=== PATIENT | female | born 1955 | race Caucasian/White ===

== ENCOUNTER 2023-12-30 18:58 | Inpatient (IN) | payer MEDICARE, MEDICAID, SELFPAY ==
[2023-12-30 20:38] VITALS: BMI 25.7
[2023-12-30 20:39] VITALS: BP 139/93; PULSE 82; RESP 17; TEMP 36.1; O2SAT 97
[2023-12-30] MEDS: clonazePAM 0.5 MG TABLET PO (22:12)
[2023-12-30] MEDS: OLANZapine 10 MG TABLET 20 MG PO (22:12)
[2023-12-30] MEDS: Melatonin 3 MG TABLET 6 MG PO (22:12)
[2023-12-30] MEDS: Sulfamethox/Trimeth 800/160 TABLET 1 TAB PO (22:13)
[2023-12-30] MEDS: Famotidine 20 MG TABLET PO (22:13)
[2023-12-30 22:14] VITALS: BP 139/93; PULSE 82
[2023-12-30] MEDS: carvediloL 25 MG TABLET PO (22:14)
[2023-12-30] MEDS: Acetaminophen 325 MG TABLET 650 MG PO (22:19)
--- NOTE | 2023-12-30 22:28 | PC.NURSE ---
Admission Note Odette Madison, 68 years old woman was presented to [facility] for delusion and hallucination triggered by UTI. She called 911 on her visiting nurse's advice. Patient lived by herself in an apartment with VNA services. Patient is independent of ADL care. Patient has a medical history of Anemia, atypical chest pain, Coronary artery diseases, chronic back pain, chronic kidney diseases, stage 4, Hyperlipidemia, Hypertension, history CVA, and Hypothyroidism. Shaneka arrived on S1 unit at 1915 on 12/30/23, on Section-12B, with an admitting diagnosis of Unspecified Bipolar and other related disorders. Patient is alert and oriented x 3 with little insight into his situation. Patient is anxious and labile but compliant with the admission process. Denied SI/HI/AVH/depression/anxiety, contracted for the safety, ambulates slowly and independently, high fall risk due to recent fall at home as reported by the patient, VSS, no visible skin issues noticed, meds rec completed based on ED list and verified by the patient /provider notified/med approved/MAR active/patient takes his medication whole with water. Patient wears glasses, wears upper dentures and only reported chewing because she doesn?t have lower dentures. Tested positive for? UTI on 12/30/23 in ED, Signed release paper, unit orientation completed,? patient is being observed on 5 minutes safety check as ordered. Patient is full code. Belongings inventoried/secured. Notice of Rights for Temporary Involuntary Hospitalization Form offered/explained/refused to sign/filed.?
[2023-12-31] MEDS: Cyclobenzaprine HCl 10 MG TABLET PO (00:17)
[2023-12-31 07:00] VITALS: BMI 25.9
[2023-12-31 08:00] VITALS: BP 132/82; PULSE 92; RESP 20; TEMP 37.2; O2SAT 97
--- NOTE | 2023-12-31 08:53 | HO.PSYADMNOT ---
HPI Date of Service: 12/31/23 Chief Complaint: unspecified bipolar and other related disorder Sources of Information: patient interviewed, chart reviewed and crisis/core team assessment reviewed Diagnostics Vital Signs (24Hr): Vital Signs - 24 hr 12/30/23 20:39 12/30/23 22:14 Temperature 97 F Pulse Rate 82 82 Respiratory Rate 17 Blood Pressure 139/93 H 139/93 H Pulse Oximetry 97 Oxygen Delivery Method Room Air BMI result Body Mass Index 25.7 Meds/Allergies Meds Home Medications ?Medication ?Instructions ?Recorded ?Confirmed ?Type amlodipine 10 mg tablet 10 mg PO DAILY 12/30/23 12/30/23 History aspirin 81 mg tablet 324 mg PO DAILY 12/30/23 12/30/23 History carvedilol 25 mg tablet 25 mg PO BID 12/30/23 12/30/23 History clonazepam 0.5 mg tablet 0.5 mg PO BID 12/30/23 12/30/23 History cyclobenzaprine 10 mg tablet 10 mg PO BID PRN Muscle Spasm 12/30/23 12/30/23 History docusate sodium 100 mg capsule 100 mg PO BID PRN Constipation 12/30/23 12/30/23 History famotidine 20 mg tablet 20 mg PO BEDTIME 12/30/23 12/30/23 History fluticasone propionate 50 2 spray intranasal BID 12/30/23 12/30/23 History mcg/actuation nasal spray,suspension guaifenesin 100 mg/5 mL oral liquid 200 mg PO Q4H PRN Cough 12/30/23 12/30/23 History lamotrigine 200 mg tablet 200 mg PO DAILY 12/30/23 12/30/23 History levothyroxine 100 mcg tablet 100 mcg PO DAILY 12/30/23 12/30/23 History meclizine 12.5 mg tablet 12.5 mg PO TID PRN Dizziness 12/30/23 12/30/23 History melatonin 3 mg tablet 6 mg PO BEDTIME 12/30/23 12/30/23 History nitroglycerin 0.4 mg sublingual 0.4 mg sublingual Q5M PRN Chest 12/30/23 12/30/23 History tablet Pain olanzapine 20 mg tablet 20 mg PO BEDTIME 12/30/23 12/30/23 History olanzapine 5 mg tablet 5 mg PO BID 12/30/23 12/30/23 History ondansetron 4 mg disintegrating 4 mg PO Q8H PRN Nausea And Vomiting 12/30/23 12/30/23 History tablet oxcarbazepine 150 mg tablet 450 mg PO QAM 12/30/23 12/30/23 History pantoprazole 20 mg tablet,delayed 20 mg PO DAILY 12/30/23 12/30/23 History release polyethylene glycol 3350 17 gram 17 g PO DAILY PRN Constipation 12/30/23 12/30/23 History oral powder packet rosuvastatin 20 mg tablet 20 mg PO BEDTIME 12/30/23 12/30/23 History sennosides 8.6 mg tablet (senna) 8.6 mg PO BID PRN Constipation 12/30/23 12/30/23 History simethicone 80 mg chewable tablet 80 mg PO DAILY PRN Dyspepsia 12/30/23 12/30/23 History sulfamethoxazole 800 1 tab PO BID 12/30/23 12/30/23 History mg-trimethoprim 160 mg tablet (Bactrim DS) tamsulosin 0.4 mg capsule 0.4 mg PO DAILY 12/30/23 12/30/23 History Allergies Allergies Allergy/AdvReac Type Severity Reaction Status Date / Time risperidone [From Risperdal] AdvReac Severe Hallucinati Verified 12/30/23 19:42 ons carbamazepine [From Tegretol] AdvReac Intermediate Rash Verified 12/30/23 19:40 chlorpromazine AdvReac Intermediate Hallucinati Verified 12/30/23 19:42 [From Thorazine] ons codeine AdvReac Intermediate Vomiting Verified 12/30/23 19:44 gluten AdvReac Intermediate Gastrointestinal Verified 12/30/23 19:46 Upset haloperidol [From Haldol] AdvReac Intermediate Hallucinati Verified 12/30/23 19:43 ons lithium AdvReac Intermediate Hallucinati Verified 12/30/23 19:45 ons trazodone AdvReac Intermediate Unknown Verified 12/30/23 19:41 Assessment & Plan Statement Statement: I have reviewed the history and physical and performed a pertinent examination on my patient. No changes have occurred unless specified. If the History and Physical was not performed prior to admission, the Hospitalist's service will be consulted for completing the admission physical. Time Spent With Patient Time: Total time managing care of this patient today ____ minutes.
[2023-12-31 09:28] LABS: Estimated Average Glucose 100 mg/dL; Hemoglobin A1C 94.6063 umol/L; Hemoglobin A1c % 5.1 % (<6.0); Total Hemoglobin (HGBA1C) 2925.1325 umol/L
[2023-12-31] MEDS: Meclizine HCl 12.5 MG TABLET PO (09:37)
[2023-12-31] MEDS: Sulfamethox/Trimeth 800/160 TABLET 1 TAB PO (09:38)
[2023-12-31] MEDS: Aspirin 81 MG TAB.CHEW 324 MG PO (09:38)
[2023-12-31 09:39] LABS: Alanine Aminotransferase 25 U/L (0-31); Albumin Level 4.5 g/dL (3.5-5.0); Alkaline Phosphatase 145 U/L (39-117); Anion Gap 15 (12-20); Aspartate Amino Transferase 26 U/L (5-31); Bilirubin Total 0.3 mg/dL (0.0-1.0); Blood Urea Nitrogen 43 mg/dL (9-16); Calcium 10.4 mg/dL (8.4-10.2); Carbon Dioxide 19 mmol/L (22-29); Chloride 113 mmol/L (96-108); Cholesterol 173 mg/dL (<200); Creatinine Clr Calc Pharmacy 13.4; Estimated Glomerular Filt Rate 15; Glucose Fasting 138 mg/dL (60-99); HDL Cholesterol 41 mg/dL (>40); LDL Cholesterol Calculated 86 mg/dL (<100); Potassium 4.3 mmol/L (3.3-5.1); Sodium 143 mmol/L (135-145); Total Protein 8.1 g/dL (6.5-8.0); Triglycerides 232 mg/dL (<150)
[2023-12-31] MEDS: Tamsulosin HCL 0.4 MG CAPSULE PO (09:40)
[2023-12-31] MEDS: Omeprazole 20 MG CAPSULE.DR PO (09:40)
[2023-12-31] MEDS: Levothyroxine Sodium 100 MCG TABLET PO (09:41)
[2023-12-31] MEDS: OXcarbazepine 150 MG TABLET 450 MG PO (09:41)
[2023-12-31] MEDS: OLANZapine 5 MG TABLET PO ×2 (09:42→21:05)
[2023-12-31] MEDS: Fluticasone Propionate Nasal 16 GM SPRAY 2 SPRAY NOSTRIL-B ×2 (09:42→21:08)
[2023-12-31] MEDS: lamoTRIgine 100 MG TABLET 200 MG PO (09:44)
[2023-12-31] MEDS: carvediloL 25 MG TABLET PO ×2 (09:45→21:04)
[2023-12-31] MEDS: amLODIPine Besylate 10 MG TABLET PO (09:45)
[2023-12-31] MEDS: clonazePAM 0.5 MG TABLET PO ×2 (09:46→21:04)
[2023-12-31 09:50] LABS: TSH reflex Free T4 1.44 uIU/mL (0.32-4.0)
--- NOTE | 2023-12-31 12:41 | P.CONHOSP_ITS ---
History of Present Illness Data of Consult Service Date: 12/31/23 Requesting physician: Ortega Kingsley Primary Care Provider: Dara Hines CNP [facility] Reason for consult: medical consult/ UTI Patient is a 68 year old female with a past medical history of bipolar, HTN, GERD, hypothyroidism status post thyroidectomy (?cancerous per pt), HLD, CKD 4, history of CVA (last 2003), [place] (2011 stent x3), TIA (), CAD, anemia, who was admitted to [facility] for delusions and hallucinations. She came from [facility] emergency department with delusions and hallucinations. She was also diagnosed with a UTI at that time and has been on Bactrim. She reports that she is still symptomatic with malodorous urine, urgency and incontinence. In addition she has chronic constipation is requesting MiraLax nightly as this works well for her and she has had some abdominal discomfort secondary to her constipation. She denies any headache, shortness of breath, chest pain, dizziness, diarrhea, nausea, vomiting or lower extremity edema. Review of Systems 2 Constitutional: Constitutional: Denies body ache(s), Denies chills, Denies fatigue, Denies fever(s) and Denies headache(s) Eyes: Eyes: Denies blurry vision and Denies change in vision ENT: Denies headache(s), Denies nasal congestion, Denies nasal discharge and Denies sore throat Cardiovascular: Cardiovascular: Denies chest pain, Denies rapid heart rate, Denies leg edema and Denies dyspnea Respiratory: Respiratory: Denies chest congestion, Denies cough and Denies dyspnea Gastrointestinal: Gastrointestinal: Reports constipation, Denies diarrhea, Denies nausea and Denies vomiting Genitourinary: Genitourinary: Denies dysuria, Reports urinary incontinence and Reports urinary urgency Musculoskeletal: Musculoskeletal: Denies arthralgias Integumentary/Breasts: Skin/Breast: Denies rash Neurologic: Denies confusion and Denies headache(s) Psychiatric: Psychiatric: Denies confusion Endocrine: Endocrine: Denies fatigue Hematologic/Lymphatic: Hematologic/Lymphatic: Denies easy bleeding and Denies easy bruising [facility] Medical History (Updated 12/31/23 @ 13:01 by Dolly Horn PA-C) TIA (transient ischemic attack) CVA (cerebral vascular accident) Myocardial infarction CAD (coronary artery disease) HLD (hyperlipidemia) Hypothyroid GERD (gastroesophageal reflux disease) HTN (hypertension) Functional capacity: independent ambulation Pertinent family history: reports mother had munchausen disease Social History Household Members: None Housing: Apartment Do you presently have visiting nurse or other home services: No Patient Tobacco Use Status: Never used Tobacco Use of substances other than those prescribed or required for medical reasons: Yes Last Used Substance Other:: 21 years ago Currently Displaying Signs/Symptoms of Drug Intoxication Withdrawal: No Have you been hit, kicked, punched, or otherwise hurt by someone within the past year? If so, by whom?: No Do you feel safe in your current relationship?: No Is there a partner from a previous relationship who is making you feel unsafe now?: No Are you made to feel afraid or neglected: No Advance Directives: No Advance Directives Information Provided: No Do you have thoughts of harming others: None Do you have a plan to hurt others: No Plan Recently lost weight without trying: Unsure Nutrition Risks: Difficulty chewing Patient : No : No Poor oral hygiene: No Meds Allergies Allergy/AdvReac Type Severity Reaction Status Date / Time risperidone [From Risperdal] AdvReac Severe Hallucinati Verified 12/30/23 19:42 ons carbamazepine [From Tegretol] AdvReac Intermediate Rash Verified 12/30/23 19:40 chlorpromazine AdvReac Intermediate Hallucinati Verified 12/30/23 19:42 [From Thorazine] ons codeine AdvReac Intermediate Vomiting Verified 12/30/23 19:44 gluten AdvReac Intermediate Gastrointestinal Verified 12/30/23 19:46 Upset haloperidol [From Haldol] AdvReac Intermediate Hallucinati Verified 12/30/23 19:43 ons lithium AdvReac Intermediate Hallucinati Verified 12/30/23 19:45 ons trazodone AdvReac Intermediate Unknown Verified 12/30/23 19:41 Active Medications: Current Medications Acetaminophen (Acetaminophen 325 Mg Tablet) 650 mg PO Q6H PRN PRN Reason: Headache/Pain Mild Scale (1-3) Last Admin: 12/30/23 22:19 Dose: 650 mg Al Hydroxide/Mg Hydroxide (Magnesium Hydrox/Alum Hydrox 30 Ml Oral.Susp) 30 ml PO Q6H PRN PRN Reason: Heartburn/Nausea Amlodipine Besylate (Amlodipine Besylate 10 Mg Tablet) 10 mg PO DAILY [facility]; Protocol Last Admin: 12/31/23 09:45 Dose: 10 mg Aspirin (Aspirin 81 Mg Tab.Chew) 324 mg PO DAILY [facility] Last Admin: 12/31/23 09:38 Dose: 324 mg Atorvastatin Calcium (Atorvastatin Calcium 80 Mg Tablet) 80 mg PO BEDTIME [facility] Carvedilol (Carvedilol 25 Mg Tablet) 25 mg PO BID [facility]; Protocol Last Admin: 12/31/23 09:45 Dose: 25 mg Clonazepam (Clonazepam 0.5 Mg Tablet) 0.5 mg PO BID [facility] Last Admin: 12/31/23 09:46 Dose: 0.5 mg Cyclobenzaprine HCl (Cyclobenzaprine Hcl 10 Mg Tablet) 10 mg PO BID PRN PRN Reason: Muscle Spasm Last Admin: 12/31/23 00:17 Dose: 10 mg Docusate Sodium (Docusate Sodium 100 Mg Capsule) 100 mg PO BID PRN PRN Reason: Constipation Famotidine (Famotidine 20 Mg Tablet) 20 mg PO BEDTIME [facility] Last Admin: 12/30/23 22:13 Dose: 20 mg Fluticasone Propionate (Fluticasone Propionate Nasal 16 Gm [place]) 2 spray NOSTRIL-B BID [facility] Last Admin: 12/31/23 09:42 Dose: 2 spray Guaifenesin (Guaifenesin 200 Mg/10 Ml 10 Ml Liquid) 10 ml PO Q4H PRN PRN Reason: Cough Lamotrigine (Lamotrigine 100 Mg Tablet) 200 mg PO DAILY [facility] Last Admin: 12/31/23 09:44 Dose: 200 mg Levothyroxine Sodium (Levothyroxine Sodium 100 Mcg Tablet) 100 mcg PO DAILY [facility] Last Admin: 12/31/23 09:41 Dose: 100 mcg Magnesium Hydroxide (Milk Of Magnesia 30 Ml Oral.Susp) 30 ml PO DAILY PRN PRN Reason: Constipation Meclizine HCl (Meclizine Hcl 12.5 Mg Tablet) 12.5 mg PO TID PRN PRN Reason: Dizziness Last Admin: 12/31/23 09:37 Dose: 12.5 mg Melatonin (Melatonin 3 Mg Tablet) 6 mg PO BEDTIME [facility] Last Admin: 12/30/23 22:12 Dose: 6 mg Nicotine (Nicotine 21 Mg Patch.Td24) 21 mg TRANSDERMA DAILY PRN PRN Reason: smoking cessation Nitroglycerin (Nitroglycerin 0.4 Mg Tab.Subl) 0.4 mg SUBLINGUAL Q5MX3 PRN PRN Reason: Chest Pain Olanzapine (Olanzapine 2.5 Mg Tablet) 2.5 mg PO TID PRN PRN Reason: agitation Olanzapine (Olanzapine 5 Mg Tablet) 5 mg PO BID [facility] Last Admin: 12/31/23 09:42 Dose: 5 mg Olanzapine (Olanzapine 10 Mg Tablet) 20 mg PO BEDTIME [facility] Last Admin: 12/30/23 22:12 Dose: 20 mg Omeprazole (Omeprazole 20 Mg Capsule.Dr) 20 mg PO DAILY [facility] Last Admin: 12/31/23 09:40 Dose: 20 mg Ondansetron HCl (Ondansetron Odt 4 Mg Tab.Rapdis) 4 mg TRANSLINGU Q8H PRN PRN Reason: Nausea And Vomiting Oxcarbazepine (Oxcarbazepine 150 Mg Tablet) 450 mg PO DAILY [facility] Last Admin: 12/31/23 09:41 Dose: 450 mg Polyethylene Glycol (Polyethylene Glycol 3350 17 Gm Powd.Pack) 17 gm PO DAILY PRN PRN Reason: Constipation Senna (Sennosides 8.6 Mg Tablet) 8.6 mg PO BID PRN PRN Reason: Constipation Simethicone (Simethicone 80 Mg Tab.Chew) 80 mg PO DAILY PRN PRN Reason: Dyspepsia Tamsulosin HCl (Tamsulosin Hcl 0.4 Mg Capsule) 0.4 mg PO DAILY [facility] Last Admin: 12/31/23 09:40 Dose: 0.4 mg Trimethoprim/Sulfamethoxazole (Sulfamethox/Trimeth 800/160 Tablet) 1 tab PO BID [facility] Last Admin: 12/31/23 09:38 Dose: 1 tab Home Medications ?Medication ?Instructions ?Recorded ?Confirmed ?Last Taken ?Type amlodipine 10 mg tablet 10 mg PO DAILY 12/30/23 12/30/23 Unknown History aspirin 81 mg tablet 324 mg PO DAILY 12/30/23 12/30/23 Unknown History carvedilol 25 mg tablet 25 mg PO BID 12/30/23 12/30/23 Unknown History clonazepam 0.5 mg tablet 0.5 mg PO BID 12/30/23 12/30/23 Unknown History cyclobenzaprine 10 mg tablet 10 mg PO BID PRN Muscle Spasm 12/30/23 12/30/23 Unknown History docusate sodium 100 mg capsule 100 mg PO BID PRN Constipation 12/30/23 12/30/23 Unknown History famotidine 20 mg tablet 20 mg PO BEDTIME 12/30/23 12/30/23 Unknown History fluticasone propionate 50 2 spray intranasal BID 12/30/23 12/30/23 Unknown History mcg/actuation nasal spray,suspension guaifenesin 100 mg/5 mL oral liquid 200 mg PO Q4H PRN Cough 12/30/23 12/30/23 Unknown History lamotrigine 200 mg tablet 200 mg PO DAILY 12/30/23 12/30/23 Unknown History levothyroxine 100 mcg tablet 100 mcg PO DAILY 12/30/23 12/30/23 Unknown History meclizine 12.5 mg tablet 12.5 mg PO TID PRN Dizziness 12/30/23 12/30/23 Unknown History melatonin 3 mg tablet 6 mg PO BEDTIME 12/30/23 12/30/23 Unknown History nitroglycerin 0.4 mg sublingual 0.4 mg sublingual Q5M PRN Chest 12/30/23 12/30/23 Unknown History tablet Pain olanzapine 20 mg tablet 20 mg PO BEDTIME 12/30/23 12/30/23 Unknown History olanzapine 5 mg tablet 5 mg PO BID 12/30/23 12/30/23 Unknown History ondansetron 4 mg disintegrating 4 mg PO Q8H PRN Nausea And Vomiting 12/30/23 12/30/23 Unknown History tablet oxcarbazepine 150 mg tablet 450 mg PO QAM 12/30/23 12/30/23 Unknown History pantoprazole 20 mg tablet,delayed 20 mg PO DAILY 12/30/23 12/30/23 Unknown History release polyethylene glycol 3350 17 gram 17 g PO DAILY PRN Constipation 12/30/23 12/30/23 Unknown History oral powder packet rosuvastatin 20 mg tablet 20 mg PO BEDTIME 12/30/23 12/30/23 Unknown History sennosides 8.6 mg tablet (senna) 8.6 mg PO BID PRN Constipation 12/30/23 12/30/23 Unknown History simethicone 80 mg chewable tablet 80 mg PO DAILY PRN Dyspepsia 12/30/23 12/30/23 Unknown History sulfamethoxazole 800 1 tab PO BID 12/30/23 12/30/23 12/30/23 History mg-trimethoprim 160 mg tablet (Bactrim DS) tamsulosin 0.4 mg capsule 0.4 mg PO DAILY 12/30/23 12/30/23 Unknown History Physical Exam 2 Vital Signs and Narrative: Vital Signs: Last Vital Signs Temp 98.9 F 12/31/23 08:00 Pulse 92 12/31/23 08:00 Resp 20 12/31/23 08:00 BP 132/82 12/31/23 08:00 Pulse Ox 97 12/31/23 08:00 O2 Del Method Room Air 12/31/23 08:00 BMI result Body Mass Index 25.7 General: AOx3, no acute distress Resp: CTA bilaterally CVS: S1, S2, RRR GI: +BS, NT, mild distention Skin: Warm, dry Neuro: Cranial nerves II-XII grossly intact bilaterally. Motor grossly intact bilaterally Extremities: No edema Psych: Appropriate affect Const: General: No confusion Orientation/consciousness: No confusion Neuro: General: No confusion Results Labs 12/31/23 08:58 Labs: Laboratory Results - last 24 hr 12/31/23 08:58 Anion Gap 15 Estim Creat Clear Calc 13.4 Estimated GFR 15 Fasting Glucose 138 H Estimat Average Glucose 100 Hemoglobin A1c % 5.1 Calcium 10.4 H Total Bilirubin 0.3 AST 26 ALT 25 Alkaline Phosphatase 145 H Total Protein 8.1 H Albumin 4.5 Triglycerides 232 H Cholesterol 173 LDL Cholesterol, Calc 86 HDL Cholesterol 41 TSH 1.44 Assessment and Plan (1) Medical clearance for psychiatric admission: Status: Acute (2) UTI (urinary tract infection): Status: Acute (3) CKD (chronic kidney disease) stage 4, GFR 15-29 ml/min: Status: Acute Plan Patient is a 68 year old female with a past medical history of bipolar, HTN, GERD, hypothyroidism status post thyroidectomy (?cancerous per pt), HLD, CKD 4, history of CVA (last 2003), [place] (2011 stent x3), TIA (), CAD, anemia, and chronic constipation, who was [facility] for [facility]usions and hallucinations. Active UTI, on Bactrim. mood disorder - plan per psych UTI - Bactrim not recommended with CKD4, will switch to ceftin 250mg BID x7 days - working on getting culture results from [facility] to ensure coverage - encourge PO fluids - continue tamsulosin CATHY on CKD - no significant change in creatinine, baseline about 2.6, currently 3.03 - likely related to Bactrim, switching abx - encourage PO fluids - consider IVF if creatinine continues to worsen, recheck in 48 hours HTN - continue amlodipine and carvedilol GERD - continue famotidine and pantoprazole Hypothyroid - continue levothyroxine - TSH normal HLD - continue rosuvastatin CAD - continue aspirin Chronic constipation - add miralax QHS per pt request Thank you for allowing me to participate in the pt's care. Will check on urine cx results to decide if ceftin needs to be switched. If unable to get records will repeact UA/cx here. Recheck BMP in 48 hours, if increasing, consider IVF. Please contact the medical team if any questions or concerns.
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
[2023-12-31 20:00] VITALS: BP 135/82; PULSE 88; RESP 17; TEMP 36.7; O2SAT 97
[2023-12-31] MEDS: Atorvastatin Calcium 80 MG TABLET PO (21:03)
[2023-12-31] MEDS: OLANZapine 10 MG TABLET 20 MG PO (21:04)
[2023-12-31] MEDS: Famotidine 20 MG TABLET PO (21:04)
[2023-12-31] MEDS: cefuroxime axetiL 250 MG TABLET PO (21:04)
[2023-12-31] MEDS: Melatonin 3 MG TABLET 6 MG PO (21:05)
[2023-12-31] MEDS: Acetaminophen 325 MG TABLET 650 MG PO (21:08)
[2024-01-01] MEDS: OLANZapine 2.5 MG TABLET PO ×2 (03:29→14:47)
[2024-01-01 08:00] VITALS: BP 126/69; PULSE 73; RESP 16; TEMP 36.4; O2SAT 99
[2024-01-01] MEDS: Tamsulosin HCL 0.4 MG CAPSULE PO (08:37)
[2024-01-01] MEDS: cefuroxime axetiL 250 MG TABLET PO ×2 (08:37→20:13)
[2024-01-01] MEDS: OLANZapine 5 MG TABLET PO ×2 (08:38→20:13)
[2024-01-01] MEDS: Aspirin 81 MG TAB.CHEW 324 MG PO (08:39)
[2024-01-01 08:42] VITALS: BP 126/69; PULSE 73
[2024-01-01] MEDS: carvediloL 25 MG TABLET PO ×2 (08:42→20:13)
[2024-01-01] MEDS: Levothyroxine Sodium 100 MCG TABLET PO (08:44)
[2024-01-01] MEDS: lamoTRIgine 100 MG TABLET 200 MG PO (08:44)
[2024-01-01] MEDS: OXcarbazepine 150 MG TABLET 450 MG PO (08:45)
[2024-01-01] MEDS: Omeprazole 20 MG CAPSULE.DR PO (08:48)
[2024-01-01] MEDS: clonazePAM 0.5 MG TABLET PO ×3 (08:48→20:13)
[2024-01-01 08:49] VITALS: BP 126/69
[2024-01-01] MEDS: amLODIPine Besylate 10 MG TABLET PO (08:49)
[2024-01-01] MEDS: Fluticasone Propionate Nasal 16 GM SPRAY 2 SPRAY NOSTRIL-B ×2 (08:50→20:22)
[2024-01-01] MEDS: Acetaminophen 325 MG TABLET 650 MG PO ×2 (11:09→17:09)
[2024-01-01] MEDS: Cyclobenzaprine HCl 10 MG TABLET PO (11:10)
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
[2024-01-01 20:00] VITALS: BP 149/88; PULSE 83; RESP 18; TEMP 36.3; O2SAT 97
[2024-01-01] MEDS: OLANZapine 10 MG TABLET 20 MG PO (20:12)
[2024-01-01] MEDS: Atorvastatin Calcium 80 MG TABLET PO (20:13)
[2024-01-01] MEDS: Famotidine 20 MG TABLET PO (20:13)
[2024-01-01] MEDS: polyethylene glycoL 3350 17 GM POWD.PACK PO (20:15)
[2024-01-02 07:51] LABS: Anion Gap 18 (12-20); Blood Urea Nitrogen 56 mg/dL (9-16); Calcium 9.6 mg/dL (8.4-10.2); Carbon Dioxide 17 mmol/L (22-29); Chloride 112 mmol/L (96-108); Creatinine Clr Calc Pharmacy 12.5; Estimated Glomerular Filt Rate 14; Glucose Random 96 mg/dL (60-115); Potassium 4.8 mmol/L (3.3-5.1); Sodium 142 mmol/L (135-145)
[2024-01-02 07:55] VITALS: BP 149/86; PULSE 81; RESP 20; TEMP 36.7; O2SAT 99
[2024-01-02] MEDS: OLANZapine 5 MG TABLET PO ×2 (08:06→21:04)
[2024-01-02] MEDS: lamoTRIgine 100 MG TABLET 200 MG PO (08:06)
[2024-01-02] MEDS: amLODIPine Besylate 10 MG TABLET PO (08:06)
[2024-01-02] MEDS: Levothyroxine Sodium 100 MCG TABLET PO (08:06)
[2024-01-02] MEDS: Aspirin 81 MG TAB.CHEW 324 MG PO (08:06)
--- NOTE | 2024-01-02 08:06 | HO.PSYCHPN ---
Subjective Subjective Date of Service: 01/02/24 Reason For Visit: unspecified bipolar and other related disorder Diagnostics Vital Signs (24Hr): Vital Signs - 24 hr 01/01/24 08:42 01/01/24 08:49 01/01/24 20:00 Temperature 97.4 F Pulse Rate 73 83 Respiratory Rate 18 Blood Pressure 126/69 126/69 149/88 H Pulse Oximetry 97 Oxygen Delivery Method Room Air BMI result Body Mass Index 25.9 Labs 01/02/24 07:18 Labs: Laboratory Results - last 48 hr 12/31/23 01/02/24 08:58 07:18 Sodium 143 142 Potassium 4.3 4.8 Chloride 113 H 112 H Carbon Dioxide 19 L 17 L Anion Gap 15 18 BUN 43 H 56 H Creatinine 3.03 H 3.28 H Estim Creat Clear Calc 13.4 12.5 Estimated GFR 15 14 Random Glucose 96 Fasting Glucose 138 H Estimat Average Glucose 100 Hemoglobin A1c % 5.1 Calcium 10.4 H 9.6 D Total Bilirubin 0.3 AST 26 ALT 25 Alkaline Phosphatase 145 H Total Protein 8.1 H Albumin 4.5 Triglycerides 232 H Cholesterol 173 LDL Cholesterol, Calc 86 HDL Cholesterol 41 TSH 1.44 Medications Medications Current Medications Acetaminophen (Acetaminophen 325 Mg Tablet) 650 mg PO Q6H PRN PRN Reason: Headache/Pain Mild Scale (1-3) Last Admin: 01/01/24 17:09 Dose: 650 mg Al Hydroxide/Mg Hydroxide (Magnesium Hydrox/Alum Hydrox 30 Ml Oral.Susp) 30 ml PO Q6H PRN PRN Reason: Heartburn/Nausea Amlodipine Besylate (Amlodipine Besylate 10 Mg Tablet) 10 mg PO DAILY [facility]; Protocol Last Admin: 01/01/24 08:49 Dose: 10 mg Aspirin (Aspirin 81 Mg Tab.Chew) 324 mg PO DAILY [facility] Last Admin: 01/01/24 08:39 Dose: 324 mg Atorvastatin Calcium (Atorvastatin Calcium 80 Mg Tablet) 80 mg PO BEDTIME [facility] Last Admin: 01/01/24 20:13 Dose: 80 mg Carvedilol (Carvedilol 25 Mg Tablet) 25 mg PO BID [facility]; Protocol Last Admin: 01/01/24 20:13 Dose: 25 mg Cefuroxime Axetil (Cefuroxime Axetil 250 Mg Tablet) 250 mg PO BID [facility] Stop: 01/07/24 09:01 Last Admin: 01/01/24 20:13 Dose: 250 mg Clonazepam (Clonazepam 0.5 Mg Tablet) 0.5 mg PO BID [facility] Last Admin: 01/01/24 20:13 Dose: 0.5 mg Clonazepam (Clonazepam 0.5 Mg Tablet) 0.5 mg PO DAILY PRN PRN Reason: for anxiety; may have anytime Cyclobenzaprine HCl (Cyclobenzaprine Hcl 10 Mg Tablet) 10 mg PO BID PRN PRN Reason: Muscle Spasm Last Admin: 01/01/24 11:10 Dose: 10 mg Docusate Sodium (Docusate Sodium 100 Mg Capsule) 100 mg PO BID PRN PRN Reason: Constipation Famotidine (Famotidine 20 Mg Tablet) 20 mg PO BEDTIME [facility] Last Admin: 01/01/24 20:13 Dose: 20 mg Fluticasone Propionate (Fluticasone Propionate Nasal 16 Gm [place]) 2 spray NOSTRIL-B BID [facility] Last Admin: 01/01/24 20:22 Dose: 2 spray Guaifenesin (Guaifenesin 200 Mg/10 Ml 10 Ml Liquid) 10 ml PO Q4H PRN PRN Reason: Cough Lamotrigine (Lamotrigine 100 Mg Tablet) 200 mg PO DAILY [facility] Last Admin: 01/01/24 08:44 Dose: 200 mg Levothyroxine Sodium (Levothyroxine Sodium 100 Mcg Tablet) 100 mcg PO DAILY [facility] Last Admin: 01/01/24 08:44 Dose: 100 mcg Magnesium Hydroxide (Milk Of Magnesia 30 Ml Oral.Susp) 30 ml PO DAILY PRN PRN Reason: Constipation Meclizine HCl (Meclizine Hcl 12.5 Mg Tablet) 12.5 mg PO TID PRN PRN Reason: Dizziness Last Admin: 12/31/23 09:37 Dose: 12.5 mg Melatonin (Melatonin 3 Mg Tablet) 6 mg PO BEDTIME [facility] Last Admin: 01/01/24 20:26 Dose: Not Given Nicotine (Nicotine 21 Mg Patch.Td24) 21 mg TRANSDERMA DAILY PRN PRN Reason: smoking cessation Nitroglycerin (Nitroglycerin 0.4 Mg Tab.Subl) 0.4 mg SUBLINGUAL Q5MX3 PRN PRN Reason: Chest Pain Olanzapine (Olanzapine 2.5 Mg Tablet) 2.5 mg PO TID PRN PRN Reason: agitation Last Admin: 01/01/24 14:47 Dose: 2.5 mg Olanzapine (Olanzapine 5 Mg Tablet) 5 mg PO BID [facility] Last Admin: 01/01/24 20:13 Dose: 5 mg Olanzapine (Olanzapine 10 Mg Tablet) 20 mg PO BEDTIME [facility] Last Admin: 01/01/24 20:12 Dose: 20 mg Omeprazole (Omeprazole 20 Mg Capsule.Dr) 20 mg PO DAILY [facility] Last Admin: 01/01/24 08:48 Dose: 20 mg Ondansetron HCl (Ondansetron Odt 4 Mg Tab.Rapdis) 4 mg TRANSLINGU Q8H PRN PRN Reason: Nausea And Vomiting Oxcarbazepine (Oxcarbazepine 150 Mg Tablet) 450 mg PO DAILY [facility] Last Admin: 01/01/24 08:45 Dose: 450 mg Polyethylene Glycol (Polyethylene Glycol 3350 17 Gm Powd.Pack) 17 gm PO DAILY PRN PRN Reason: Constipation Polyethylene Glycol (Polyethylene Glycol 3350 17 Gm Powd.Pack) 17 gm PO DAILY [facility] Last Admin: 01/01/24 20:15 Dose: 17 gm Senna (Sennosides 8.6 Mg Tablet) 8.6 mg PO BID PRN PRN Reason: Constipation Simethicone (Simethicone 80 Mg Tab.Chew) 80 mg PO DAILY PRN PRN Reason: Dyspepsia Tamsulosin HCl (Tamsulosin Hcl 0.4 Mg Capsule) 0.4 mg PO DAILY [facility] Last Admin: 01/01/24 08:37 Dose: 0.4 mg Allergies Allergies Allergy/AdvReac Type Severity Reaction Status Date / Time risperidone [From Risperdal] AdvReac Severe Hallucinati Verified 12/30/23 19:42 ons carbamazepine [From Tegretol] AdvReac Intermediate Rash Verified 12/30/23 19:40 chlorpromazine AdvReac Intermediate Hallucinati Verified 12/30/23 19:42 [From Thorazine] ons codeine AdvReac Intermediate Vomiting Verified 12/30/23 19:44 gluten AdvReac Intermediate Gastrointestinal Verified 12/30/23 19:46 Upset haloperidol [From Haldol] AdvReac Intermediate Hallucinati Verified 12/30/23 19:43 ons lithium AdvReac Intermediate Hallucinati Verified 12/30/23 19:45 ons trazodone AdvReac Intermediate Unknown Verified 12/30/23 19:41 Assessment & Plan Assessment & Plan (1) Medical clearance for psychiatric admission: Status: Acute Code(s): Z00.8 - Encounter for other general examination (2) UTI (urinary tract infection): Status: Acute Code(s): N39.0 - Urinary tract infection, site not specified (3) CKD (chronic kidney disease) stage 4, GFR 15-29 ml/min: Status: Acute Code(s): N18.4 - Chronic kidney disease, stage 4 (severe) Plan Patient is a 68 year old female with a past medical history of bipolar, HTN, GERD, hypothyroidism status post thyroidectomy (?cancerous per pt), HLD, CKD 4, history of CVA (last 2003), IA (2011 stent x3), TIA (), CAD, anemia, and chronic constipation, who was [facility] for delusions and hallucinations. Active UTI, on Bactrim. mood disorder - plan per psych UTI - Bactrim not recommended with CKD4, will switch to ceftin 250mg BID x7 days - working on getting culture results from [facility] to ensure coverage - encourge PO fluids - continue tamsulosin CATHY on CKD - no significant change in creatinine, baseline about 2.6, currently 3.03 - likely related to Bactrim, switching abx - encourage PO fluids - consider IVF if creatinine continues to worsen, recheck in 48 hours HTN - continue amlodipine and carvedilol GERD - continue famotidine and pantoprazole Hypothyroid - continue levothyroxine - TSH normal HLD - continue rosuvastatin CAD - continue aspirin Chronic constipation - add miralax QHS per pt request Thank you for allowing me to participate in the pt's care. Will check on urine cx results to decide if ceftin needs to be switched. If unable to get records will repeact UA/cx here. Recheck BMP in 48 hours, if increasing, consider IVF. Please contact the medical team if any questions or concerns. Time Spent With Patient Time: Total time managing care of this patient today ____ minutes.
[2024-01-02] MEDS: Tamsulosin HCL 0.4 MG CAPSULE PO (08:07)
[2024-01-02] MEDS: OXcarbazepine 150 MG TABLET 450 MG PO (08:07)
[2024-01-02] MEDS: clonazePAM 0.5 MG TABLET PO ×3 (08:07→21:04)
[2024-01-02] MEDS: Omeprazole 20 MG CAPSULE.DR PO (08:07)
[2024-01-02] MEDS: polyethylene glycoL 3350 17 GM POWD.PACK PO (08:07)
[2024-01-02] MEDS: cefuroxime axetiL 250 MG TABLET PO ×2 (08:07→21:04)
[2024-01-02] MEDS: carvediloL 25 MG TABLET PO ×2 (08:07→21:04)
[2024-01-02] MEDS: Fluticasone Propionate Nasal 16 GM SPRAY 2 SPRAY NOSTRIL-B ×2 (08:07→21:03)
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
--- NOTE | 2024-01-02 14:03 | PM.EVENT ---
Event Note Date of Service: 01/02/24 Event Note: Patient is a 68-year-old female admitted to [facility] with follow-up for worsening creatinine function. Patient has a history of CKD 4 with baseline creatinine around 2.6. Patient was started on Bactrim for UTI at previous facility and found here to have worsening creatinine function of 3.03 on 12/30 moment and 3.28 today. Patient's antibiotics have been switched to cefuroxime. We will give patient 1 L IVF for CATHY on CKD. Will repeat labs in the morning. Also alerted by nursing that pt's bladder scan shows 300ml. Pt states has not yet urinated but feels like she will soon. Will place orders for straight cath for scan showing >350ml. Time Spent With Patient Time: Total time managing care of this patient today ____ minutes.
[2024-01-02] MEDS: Acetaminophen 325 MG TABLET 650 MG PO (17:27)
[2024-01-02] MEDS: Lactated Ringers 1,000 ML 999 ML IV (17:32)
[2024-01-02] MEDS: OLANZapine 2.5 MG TABLET PO (17:50)
[2024-01-02 18:12] LABS: Appearance Urine Clear; Color Urine Yellow; Glucose Urine UA Negative (Negative); Leukocyte Esterase Urine Negative (Negative); Nitrite Urine Negative (Negative); PH 5.5 (5.0-9.0); Specific Gravity - Urine <= 1.005 (1.005-1.025); UMIC TRIGGER UACC YES; Urine Blood Negative (Negative); Urine Ketones Negative (Negative); Urine Protein 30 (1+) mg/dL (Neg-Trace)
[2024-01-02 18:17] LABS: Bacteria Urine None Seen (None Seen); Hyaline Casts Urine 0-2 /LPF (0-2); RBC Urine 0-2 /HPF (0-2); Squamous Epithelial Cell Urine 0-2 /HPF (0-2); WBC Urine 0-5 /HPF (0-5)
[2024-01-02 20:00] VITALS: BP 116/80; PULSE 73; RESP 18; TEMP 36.3; O2SAT 98
[2024-01-02] MEDS: Atorvastatin Calcium 80 MG TABLET PO (21:04)
[2024-01-02] MEDS: Melatonin 3 MG TABLET 6 MG PO (21:04)
[2024-01-02] MEDS: Famotidine 20 MG TABLET PO (21:04)
[2024-01-02] MEDS: OLANZapine 10 MG TABLET 20 MG PO (21:04)
--- NOTE | 2024-01-02 22:43 | PC.NURSE ---
Hospitalist called for IV flush order but he ordered to have IV line discontinued. IV removed/cleansed/covered with dry dressing secured with tap, patient tolerated well, will continue to monitor.
[2024-01-03] MEDS: Acetaminophen 325 MG TABLET 650 MG PO ×3 (03:29→17:46)
[2024-01-03] MEDS: Levothyroxine Sodium 100 MCG TABLET PO (06:17)
[2024-01-03 07:41] LABS: Anion Gap 17 (12-20); Blood Urea Nitrogen 53 mg/dL (9-16); Calcium 9.2 mg/dL (8.4-10.2); Carbon Dioxide 19 mmol/L (22-29); Chloride 112 mmol/L (96-108); Creatinine Clr Calc Pharmacy 13.9; Estimated Glomerular Filt Rate 16; Glucose Random 100 mg/dL (60-115); Potassium 4.6 mmol/L (3.3-5.1); Sodium 143 mmol/L (135-145)
[2024-01-03 07:55] VITALS: BP 119/72; PULSE 74; RESP 18; TEMP 36.4; O2SAT 99
[2024-01-03] MEDS: cefuroxime axetiL 250 MG TABLET PO ×2 (08:03→20:58)
[2024-01-03] MEDS: carvediloL 25 MG TABLET PO ×2 (08:03→21:00)
[2024-01-03] MEDS: lamoTRIgine 100 MG TABLET 200 MG PO (08:04)
[2024-01-03] MEDS: OXcarbazepine 150 MG TABLET 450 MG PO (08:04)
[2024-01-03] MEDS: Aspirin 81 MG TAB.CHEW 324 MG PO (08:04)
[2024-01-03] MEDS: Tamsulosin HCL 0.4 MG CAPSULE PO (08:04)
[2024-01-03] MEDS: OLANZapine 5 MG TABLET PO ×2 (08:04→20:59)
[2024-01-03] MEDS: amLODIPine Besylate 10 MG TABLET PO (08:05)
[2024-01-03] MEDS: clonazePAM 0.5 MG TABLET PO ×3 (08:05→20:58)
[2024-01-03] MEDS: Fluticasone Propionate Nasal 16 GM SPRAY 2 SPRAY NOSTRIL-B ×2 (08:05→21:01)
[2024-01-03] MEDS: Omeprazole 20 MG CAPSULE.DR PO (08:05)
[2024-01-03] MEDS: polyethylene glycoL 3350 17 GM POWD.PACK PO (08:11)
[2024-01-03] MEDS: OLANZapine 2.5 MG TABLET PO (10:35)
[2024-01-03] MEDS: Meclizine HCl 12.5 MG TABLET PO (12:30)
[2024-01-03] MEDS: Cyclobenzaprine HCl 10 MG TABLET PO (17:45)
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
[2024-01-03 20:00] VITALS: BP 137/74; PULSE 78; RESP 16; TEMP 36.2; O2SAT 100
[2024-01-03] MEDS: OLANZapine 10 MG TABLET 20 MG PO (20:58)
[2024-01-03] MEDS: Famotidine 20 MG TABLET PO (20:59)
[2024-01-03] MEDS: Atorvastatin Calcium 80 MG TABLET PO (20:59)
[2024-01-03 21:00] VITALS: BP 137/74; PULSE 78
[2024-01-03] MEDS: Melatonin 3 MG TABLET 6 MG PO (21:00)
[2024-01-04] MEDS: Cyclobenzaprine HCl 10 MG TABLET PO (03:10)
[2024-01-04] MEDS: Acetaminophen 325 MG TABLET 650 MG PO ×2 (03:11→13:43)
[2024-01-04] MEDS: Levothyroxine Sodium 100 MCG TABLET PO (06:22)
[2024-01-04 08:45] VITALS: BP 132/79; PULSE 97; RESP 18; TEMP 36; O2SAT 98
[2024-01-04] MEDS: Aspirin 81 MG TAB.CHEW 324 MG PO (09:27)
[2024-01-04] MEDS: OXcarbazepine 150 MG TABLET 450 MG PO (09:27)
[2024-01-04] MEDS: amLODIPine Besylate 10 MG TABLET PO (09:29)
[2024-01-04] MEDS: clonazePAM 0.5 MG TABLET PO ×3 (09:30→21:28)
[2024-01-04] MEDS: Omeprazole 20 MG CAPSULE.DR PO (09:30)
[2024-01-04] MEDS: Tamsulosin HCL 0.4 MG CAPSULE PO (09:31)
[2024-01-04] MEDS: cefuroxime axetiL 250 MG TABLET PO ×2 (09:32→21:32)
[2024-01-04] MEDS: carvediloL 25 MG TABLET PO ×2 (09:33→21:28)
[2024-01-04] MEDS: lamoTRIgine 100 MG TABLET 200 MG PO (09:34)
[2024-01-04] MEDS: Fluticasone Propionate Nasal 16 GM SPRAY 2 SPRAY NOSTRIL-B ×2 (09:35→21:33)
[2024-01-04] MEDS: OLANZapine 5 MG TABLET PO ×2 (09:50→21:29)
[2024-01-04] MEDS: OLANZapine 2.5 MG TABLET PO (16:21)
[2024-01-04 20:00] VITALS: BP 159/95; PULSE 85; RESP 18; TEMP 36.6; O2SAT 99
[2024-01-04 21:28] VITALS: BP 159/95; PULSE 85
[2024-01-04] MEDS: OLANZapine 10 MG TABLET 20 MG PO (21:29)
[2024-01-04] MEDS: Melatonin 3 MG TABLET 6 MG PO (21:30)
[2024-01-04] MEDS: Famotidine 20 MG TABLET PO (21:31)
[2024-01-04] MEDS: Atorvastatin Calcium 80 MG TABLET PO (21:32)
[2024-01-05] MEDS: Cyclobenzaprine HCl 10 MG TABLET PO (01:36)
[2024-01-05] MEDS: Acetaminophen 325 MG TABLET 650 MG PO (01:36)
[2024-01-05] MEDS: Levothyroxine Sodium 100 MCG TABLET PO (05:45)
[2024-01-05 08:38] VITALS: BP 138/85; PULSE 85; RESP 16; TEMP 36.9; O2SAT 97
[2024-01-05] MEDS: Tamsulosin HCL 0.4 MG CAPSULE PO (08:39)
[2024-01-05] MEDS: OXcarbazepine 150 MG TABLET 450 MG PO (08:39)
[2024-01-05] MEDS: cefuroxime axetiL 250 MG TABLET PO ×2 (08:39→21:05)
[2024-01-05] MEDS: Fluticasone Propionate Nasal 16 GM SPRAY 2 SPRAY NOSTRIL-B ×2 (08:39→21:02)
[2024-01-05] MEDS: Omeprazole 20 MG CAPSULE.DR PO (08:39)
[2024-01-05] MEDS: Aspirin 81 MG TAB.CHEW 324 MG PO (08:40)
[2024-01-05] MEDS: clonazePAM 0.5 MG TABLET PO ×3 (08:41→21:04)
[2024-01-05] MEDS: lamoTRIgine 100 MG TABLET 200 MG PO (08:41)
[2024-01-05] MEDS: carvediloL 25 MG TABLET PO ×2 (08:41→21:07)
[2024-01-05] MEDS: amLODIPine Besylate 10 MG TABLET PO (08:41)
[2024-01-05] MEDS: OLANZapine 5 MG TABLET PO ×2 (08:41→21:07)
[2024-01-05] MEDS: Meclizine HCl 12.5 MG TABLET PO (08:55)
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
[2024-01-05] MEDS: OLANZapine 2.5 MG TABLET PO ×2 (14:58→17:29)
[2024-01-05 20:00] VITALS: BP 147/77; PULSE 82; RESP 18; TEMP 36.4; O2SAT 98
[2024-01-05] MEDS: OLANZapine 10 MG TABLET 20 MG PO (21:03)
[2024-01-05 21:07] VITALS: BP 147/77; PULSE 82
[2024-01-05] MEDS: Famotidine 20 MG TABLET PO (21:09)
[2024-01-05] MEDS: Atorvastatin Calcium 80 MG TABLET PO (21:11)
[2024-01-05] MEDS: Melatonin 3 MG TABLET 6 MG PO (21:12)
[2024-01-06] MEDS: Levothyroxine Sodium 100 MCG TABLET PO (06:49)
[2024-01-06 08:00] VITALS: BP 147/86; PULSE 56; RESP 16; TEMP 36.2; O2SAT 98
[2024-01-06] MEDS: Aspirin 81 MG TAB.CHEW 324 MG PO (08:32)
[2024-01-06 08:34] VITALS: BP 147/86
[2024-01-06] MEDS: amLODIPine Besylate 10 MG TABLET PO (08:34)
[2024-01-06] MEDS: lamoTRIgine 100 MG TABLET 200 MG PO (08:35)
[2024-01-06 08:36] VITALS: BP 147/86; PULSE 80
[2024-01-06] MEDS: carvediloL 25 MG TABLET PO ×2 (08:36→20:38)
[2024-01-06] MEDS: Omeprazole 20 MG CAPSULE.DR PO (08:38)
[2024-01-06] MEDS: OXcarbazepine 150 MG TABLET 450 MG PO (08:39)
[2024-01-06] MEDS: Tamsulosin HCL 0.4 MG CAPSULE PO (08:39)
[2024-01-06] MEDS: OLANZapine 5 MG TABLET PO ×2 (08:41→20:40)
[2024-01-06] MEDS: clonazePAM 0.5 MG TABLET PO ×3 (08:41→20:41)
[2024-01-06] MEDS: cefuroxime axetiL 250 MG TABLET PO ×2 (08:42→20:40)
[2024-01-06] MEDS: polyethylene glycoL 3350 17 GM POWD.PACK PO (08:44)
[2024-01-06 11:10] VITALS: BP 147/86; PULSE 80; RESP 16; TEMP 36.2; O2SAT 98
[2024-01-06] MEDS: Fluticasone Propionate Nasal 16 GM SPRAY 2 SPRAY NOSTRIL-B (13:41)
[2024-01-06] MEDS: Cyclobenzaprine HCl 10 MG TABLET PO ×2 (13:42→20:56)
[2024-01-06] MEDS: OLANZapine 2.5 MG TABLET PO (17:38)
--- NOTE | 2024-01-06 19:01 | PC.NURSE ---
Pt had a witnessed fall this morning with no injuries, VSS, and was witnessed/seen by MD. Pt placed on 5 min checks for added safety, non-skid footware and education provided.
[2024-01-06 20:00] VITALS: BP 133/87; PULSE 74; RESP 16; TEMP 36.3; O2SAT 97
[2024-01-06] MEDS: Melatonin 3 MG TABLET 6 MG PO (20:37)
[2024-01-06 20:38] VITALS: BP 133/87; PULSE 78
[2024-01-06] MEDS: Atorvastatin Calcium 80 MG TABLET PO (20:39)
[2024-01-06] MEDS: OLANZapine 10 MG TABLET 20 MG PO (20:40)
[2024-01-06] MEDS: Famotidine 20 MG TABLET PO (20:41)
[2024-01-06] MEDS: Acetaminophen 325 MG TABLET 650 MG PO (21:15)
[2024-01-07] MEDS: Levothyroxine Sodium 100 MCG TABLET PO (05:55)
[2024-01-07] MEDS: Tamsulosin HCL 0.4 MG CAPSULE PO (08:19)
[2024-01-07] MEDS: Aspirin 81 MG TAB.CHEW 324 MG PO (08:19)
[2024-01-07] MEDS: cefuroxime axetiL 250 MG TABLET PO (08:19)
[2024-01-07 08:20] VITALS: BP 114/75; PULSE 96; RESP 18; TEMP 36.6; O2SAT 94
[2024-01-07] MEDS: Omeprazole 20 MG CAPSULE.DR PO (08:20)
[2024-01-07] MEDS: OLANZapine 5 MG TABLET PO ×2 (08:21→20:04)
[2024-01-07] MEDS: lamoTRIgine 100 MG TABLET 200 MG PO (08:21)
[2024-01-07] MEDS: amLODIPine Besylate 10 MG TABLET PO (08:21)
[2024-01-07] MEDS: carvediloL 25 MG TABLET PO ×2 (08:21→20:04)
[2024-01-07] MEDS: clonazePAM 0.5 MG TABLET PO ×3 (08:22→20:02)
[2024-01-07] MEDS: polyethylene glycoL 3350 17 GM POWD.PACK PO (08:36)
[2024-01-07] MEDS: Fluticasone Propionate Nasal 16 GM SPRAY 2 SPRAY NOSTRIL-B (08:36)
[2024-01-07] MEDS: Cyclobenzaprine HCl 10 MG TABLET PO ×2 (10:57→20:04)
[2024-01-07] MEDS: OLANZapine 2.5 MG TABLET PO (10:57)
[2024-01-07] MEDS: Acetaminophen 325 MG TABLET 650 MG PO ×2 (10:58→20:03)
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
[2024-01-07 13:40] VITALS: BMI 26.1
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
[2024-01-07 19:41] VITALS: BP 142/85; PULSE 88; RESP 18; TEMP 36.1; O2SAT 97
[2024-01-07] MEDS: OXcarbazepine 150 MG TABLET 450 MG PO (20:02)
[2024-01-07] MEDS: Famotidine 20 MG TABLET PO (20:03)
[2024-01-07] MEDS: Atorvastatin Calcium 80 MG TABLET PO (20:04)
[2024-01-07] MEDS: OLANZapine 10 MG TABLET 20 MG PO (20:48)
[2024-01-08] MEDS: OLANZapine 2.5 MG TABLET PO (00:53)
[2024-01-08] MEDS: Levothyroxine Sodium 100 MCG TABLET PO (06:09)
[2024-01-08] MEDS: Cyclobenzaprine HCl 10 MG TABLET PO (10:01)
[2024-01-08] MEDS: lamoTRIgine 100 MG TABLET 200 MG PO (10:01)
[2024-01-08] MEDS: clonazePAM 0.5 MG TABLET PO ×3 (10:02→20:20)
[2024-01-08] MEDS: Aspirin 81 MG TAB.CHEW 324 MG PO (10:02)
[2024-01-08] MEDS: carvediloL 25 MG TABLET PO ×2 (10:02→20:19)
[2024-01-08] MEDS: Acetaminophen 325 MG TABLET 650 MG PO ×2 (10:02→20:20)
[2024-01-08] MEDS: Fluticasone Propionate Nasal 16 GM SPRAY 2 SPRAY NOSTRIL-B ×2 (10:03→20:33)
[2024-01-08] MEDS: Omeprazole 20 MG CAPSULE.DR PO (10:03)
[2024-01-08] MEDS: OLANZapine 5 MG TABLET PO ×2 (10:03→20:21)
[2024-01-08] MEDS: amLODIPine Besylate 10 MG TABLET PO (10:03)
[2024-01-08] MEDS: polyethylene glycoL 3350 17 GM POWD.PACK PO (10:07)
[2024-01-08 10:58] VITALS: BP 145/84; PULSE 80; RESP 18; TEMP 36.4; O2SAT 96
[2024-01-08 11:52] LABS: Alanine Aminotransferase 48 U/L (0-31); Albumin Level 4.2 g/dL (3.5-5.0); Alkaline Phosphatase 160 U/L (39-117); Anion Gap 15 (12-20); Aspartate Amino Transferase 39 U/L (5-31); Bilirubin Total 0.2 mg/dL (0.0-1.0); Blood Urea Nitrogen 57 mg/dL (9-16); Calcium 9.2 mg/dL (8.4-10.2); Carbon Dioxide 22 mmol/L (22-29); Chloride 110 mmol/L (96-108); Creatinine Clr Calc Pharmacy 15.9; Estimated Glomerular Filt Rate 18; Glucose Random 100 mg/dL (60-115); Sodium 142 mmol/L (135-145); Total Protein 7.3 g/dL (6.5-8.0)
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
[2024-01-08 20:00] VITALS: BP 152/100; PULSE 87; RESP 18; TEMP 36.8; O2SAT 99
[2024-01-08 20:19] VITALS: BP 152/100; PULSE 87
[2024-01-08] MEDS: OXcarbazepine 150 MG TABLET 450 MG PO (20:19)
[2024-01-08] MEDS: Famotidine 20 MG TABLET PO (20:21)
[2024-01-08] MEDS: Atorvastatin Calcium 80 MG TABLET PO (20:21)
[2024-01-08] MEDS: OLANZapine 10 MG TABLET 20 MG PO (20:21)
[2024-01-08] MEDS: Sennosides 8.6 MG TABLET PO (20:21)
[2024-01-09] MEDS: Levothyroxine Sodium 100 MCG TABLET PO (05:58)
[2024-01-09 08:00] VITALS: BP 131/75; PULSE 84; RESP 18; TEMP 36.6; O2SAT 98
[2024-01-09] MEDS: Aspirin 81 MG TAB.CHEW 324 MG PO (08:31)
[2024-01-09] MEDS: clonazePAM 0.5 MG TABLET PO ×3 (08:32→20:34)
[2024-01-09] MEDS: carvediloL 25 MG TABLET PO ×2 (08:32→20:32)
[2024-01-09] MEDS: lamoTRIgine 100 MG TABLET 200 MG PO (08:32)
[2024-01-09] MEDS: Sennosides 8.6 MG TABLET PO ×2 (08:33→20:34)
[2024-01-09] MEDS: Omeprazole 20 MG CAPSULE.DR PO (08:33)
[2024-01-09] MEDS: amLODIPine Besylate 10 MG TABLET PO (08:33)
[2024-01-09] MEDS: OLANZapine 5 MG TABLET PO ×2 (08:33→20:34)
[2024-01-09] MEDS: Tamsulosin HCL 0.4 MG CAPSULE PO (08:33)
[2024-01-09] MEDS: Docusate Sodium 100 MG CAPSULE PO ×2 (08:33→20:32)
[2024-01-09] MEDS: Fluticasone Propionate Nasal 16 GM SPRAY 2 SPRAY NOSTRIL-B ×2 (08:34→20:35)
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
[2024-01-09] MEDS: Acetaminophen 325 MG TABLET 650 MG PO (12:47)
[2024-01-09] MEDS: Cyclobenzaprine HCl 10 MG TABLET PO (12:47)
[2024-01-09 20:00] VITALS: BP 139/91; PULSE 85; RESP 18; TEMP 37.1; O2SAT 98
[2024-01-09 20:32] VITALS: BP 139/91; PULSE 85
[2024-01-09] MEDS: Famotidine 20 MG TABLET PO (20:33)
[2024-01-09] MEDS: OLANZapine 10 MG TABLET 20 MG PO (20:33)
[2024-01-09] MEDS: Melatonin 3 MG TABLET 6 MG PO (20:34)
[2024-01-09] MEDS: Atorvastatin Calcium 80 MG TABLET PO (20:34)
[2024-01-09] MEDS: OXcarbazepine 150 MG TABLET 450 MG PO (20:34)
[2024-01-10] MEDS: Levothyroxine Sodium 100 MCG TABLET PO (05:58)
--- NOTE | 2024-01-10 06:02 | PC.NURSE ---
Miroslava alerted staff she had urinated, post void scan for 7 mls. Miorslava reported she had a good stream.
[2024-01-10 08:00] VITALS: BP 141/82; PULSE 79; RESP 17; TEMP 36.2; O2SAT 98
[2024-01-10] MEDS: Aspirin 81 MG TAB.CHEW 324 MG PO (08:28)
[2024-01-10] MEDS: amLODIPine Besylate 10 MG TABLET PO (08:28)
[2024-01-10] MEDS: lamoTRIgine 100 MG TABLET 200 MG PO (08:28)
[2024-01-10] MEDS: carvediloL 25 MG TABLET PO ×2 (08:28→19:52)
[2024-01-10] MEDS: OLANZapine 5 MG TABLET PO ×2 (08:29→22:26)
[2024-01-10] MEDS: Sennosides 8.6 MG TABLET PO (08:29)
[2024-01-10] MEDS: Docusate Sodium 100 MG CAPSULE PO (08:29)
[2024-01-10] MEDS: Tamsulosin HCL 0.4 MG CAPSULE PO (08:29)
[2024-01-10] MEDS: Omeprazole 20 MG CAPSULE.DR PO (08:29)
[2024-01-10] MEDS: clonazePAM 0.5 MG TABLET PO ×3 (08:29→19:56)
[2024-01-10] MEDS: Fluticasone Propionate Nasal 16 GM SPRAY 2 SPRAY NOSTRIL-B ×2 (08:35→20:24)
[2024-01-10] MEDS: polyethylene glycoL 3350 17 GM POWD.PACK PO (08:35)
[2024-01-10] MEDS: Cyclobenzaprine HCl 10 MG TABLET PO ×2 (08:43→20:22)
[2024-01-10] MEDS: Acetaminophen 325 MG TABLET 650 MG PO ×2 (08:44→20:21)
[2024-01-10] MEDS: OLANZapine 2.5 MG TABLET PO ×2 (12:23→23:39)
[2024-01-10] MEDS: OXcarbazepine 150 MG TABLET 450 MG PO (19:53)
[2024-01-10] MEDS: OLANZapine 10 MG TABLET 20 MG PO (19:53)
[2024-01-10] MEDS: Famotidine 20 MG TABLET PO (19:55)
[2024-01-10] MEDS: Melatonin 3 MG TABLET 6 MG PO (19:55)
[2024-01-10] MEDS: Atorvastatin Calcium 80 MG TABLET PO (19:56)
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
[2024-01-10 20:00] VITALS: BP 147/69; PULSE 93; RESP 16; TEMP 36.9; O2SAT 98
[2024-01-10] MEDS: Ondansetron ODT 4 MG TAB.RAPDIS TRANSLINGU (23:37)
[2024-01-11] MEDS: Levothyroxine Sodium 100 MCG TABLET PO (06:03)
[2024-01-11 07:57] VITALS: BP 155/97
[2024-01-11] MEDS: amLODIPine Besylate 10 MG TABLET PO (07:57)
[2024-01-11] MEDS: lamoTRIgine 100 MG TABLET 200 MG PO (07:59)
[2024-01-11] MEDS: clonazePAM 0.5 MG TABLET PO ×2 (07:59→11:15)
[2024-01-11 08:00] VITALS: BP 155/97; PULSE 81; RESP 16; TEMP 37.1; O2SAT 99
[2024-01-11] MEDS: carvediloL 25 MG TABLET PO (08:00)
[2024-01-11] MEDS: Aspirin 81 MG TAB.CHEW 324 MG PO (08:01)
[2024-01-11] MEDS: Omeprazole 20 MG CAPSULE.DR PO (08:02)
[2024-01-11] MEDS: Docusate Sodium 100 MG CAPSULE PO (08:04)
[2024-01-11] MEDS: Sennosides 8.6 MG TABLET PO (08:04)
[2024-01-11] MEDS: OLANZapine 5 MG TABLET PO (08:05)
[2024-01-11] MEDS: Tamsulosin HCL 0.4 MG CAPSULE PO (08:05)
[2024-01-11] MEDS: guaiFENesin 200 MG/10 ML 10 ML LIQUID PO (08:50)
[2024-01-11] MEDS: Cyclobenzaprine HCl 10 MG TABLET PO (08:51)
[2024-01-11] MEDS: Acetaminophen 325 MG TABLET 650 MG PO (08:52)
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
[2024-01-11] MEDS: Meclizine HCl 12.5 MG TABLET PO (13:31)
== END 2024-01-11 13:36 | disposition home or self-care (01) | DRG 885 ==
PROVIDERS: Physician Assistant; Psychiatry & Neurology Psychiatry; Social Worker; Student in an Organized Health Care Education/Training Program; Admitting Provider Psychiatry & Neurology Psychiatry; PCP Nurse Practitioner Family; Visit Provider Psychiatry & Neurology Psychiatry
DX: F25.0 Schizoaffective disorder, bipolar type (principal); N39.0 Urinary tract infection, site not specified; N18.4 Chronic kidney disease, stage 4 (severe); F43.10 Post-traumatic stress disorder, unspecified; I25.10 Atherosclerotic heart disease of native coronary artery without angina pectoris; E89.0 Postprocedural hypothyroidism; K21.9 Gastro-esophageal reflux disease without esophagitis; K59.09 Other constipation; E78.5 Hyperlipidemia, unspecified; I12.9 Hypertensive chronic kidney disease with stage 1 through stage 4 chronic kidney disease, or unspecified chronic kidney disease; Z86.73 Personal history of transient ischemic attack (TIA), and cerebral infarction without residual deficits; Z91.148 Patient's other noncompliance with medication regimen for other reason; Z79.82 Long term (current) use of aspirin; Z79.890 Hormone replacement therapy; Z79.899 Other long term (current) drug therapy
CPT/HCPCS: 36415; 80048; 80053; 80061; 81001; 83036; 84443; J7120

== ENCOUNTER → 2023-12-30 18:58 | Outpatient (BNV) | payer MEDICARE, MEDICAID, SELFPAY | PROVIDERS: Admitting Provider Psychiatry & Neurology Psychiatry; PCP Nurse Practitioner Family; Visit Provider Physician Assistant | DX: N39.0 Urinary tract infection, site not specified (principal); N18.4 Chronic kidney disease, stage 4 (severe) | CPT/HCPCS: 99223; 99499 ==

== ENCOUNTER → 2023-12-30 18:58 | Outpatient (BNV) | payer MEDICARE, MEDICAID, SELFPAY | PROVIDERS: Admitting Provider Psychiatry & Neurology Psychiatry; PCP Nurse Practitioner Family; Visit Provider Psychiatry & Neurology Psychiatry | DX: F31.2 Bipolar disorder, current episode manic severe with psychotic features (principal); F43.11 Post-traumatic stress disorder, acute; N18.4 Chronic kidney disease, stage 4 (severe); N39.0 Urinary tract infection, site not specified | CPT/HCPCS: 90792; 99231; 99232; 99239 ==